=== PATIENT | female | born 1995 | race Caucasian/White ===

== ENCOUNTER 2019-08-22 17:02 | Emergency (ER) | payer BC, OTHER ==
[2019-08-22 17:50] VITALS: BP 117/63
--- NOTE | 2019-08-22 18:10 | UC ---
Complaint Female HPI - HPI Summary HPI Summary: Patient is a 24yo female presenting with mother requesting "blood test for ." Patient states that she is currently trying to become with her first child and had a positive home test 2 days ago. States LMP . Her mother notes that the women in their family have a history of "feeling and having positive home tests, but not actually being ." Her mother states that because of this, "only blood tests have ever been accurate." Patient states since the end of July she has had nausea and vomiting "almost every other day" and that "she just feels different. Patient notes urinating frequency the past few days. She notes a h/o UTIs but states she does not have the burning that she usually has with them. - History Of Current Complaint Chief Complaint: UCGU Stated Complaint: PERSONAL Hx Obtained From: Patient, Family/Historical Guide - mother Hx Last Menstrual Period: 07/02/19 Pain Intensity: 0 - Allergies/Home Medications Allergies/Adverse Reactions: Allergies Allergy/AdvReac Type Severity Reaction Status Date / Time azithromycin Allergy Difficulty Verified 08/22/19 17:46 Breathing oxycodone Allergy Lightheaded, Verified 08/22/19 17:47 Nausea, Swelling PMH/Surg Hx/FS Hx/Imm Hx Previously Healthy: Yes - Surgical History Surgical History: Yes Surgery Procedure, Year, and Place: T&A, ~2009, [place] - Family History Known Family History: Positive: Non-Contributory - Social History Alcohol Use: None Substance Use Type: None Smoking Status (MU): Never Smoked Tobacco Household Exposure Type: Cigarettes Review of Systems All Other Systems Reviewed And Are Negative: Yes Constitutional: Positive: Negative Respiratory: Positive: Negative Cardiovascular: Positive: Negative Gastrointestinal: Positive: Vomiting - intermittent for ~1 month, Nausea - intermittent for ~1 month. Negative: Abdominal Pain, Diarrhea Genitourinary: Positive: Frequency. Negative: Dysuria, Hematuria, Urgency, Vaginal/Penile Burning Musculoskeletal: Positive: Negative Neurological: Positive: Negative Physical Exam Triage Information Reviewed: Yes Appearance: Well-Appearing, No Pain Distress, Well-Nourished, Obese Vital Signs: Initial Vital Signs Temp 98.6 F 08/22/19 17:44 Pulse 78 08/22/19 17:44 Resp 18 08/22/19 17:44 BP 117/63 08/22/19 17:44 Pulse Ox 100 08/22/19 17:44 Lab Results 08/22/19 08/22/19 Range/Units 17:55 17:57 POC Urine Color Yellow POC Urine Clarity Slightly cloudy POC Urine pH 5.5 (5-9) POC Ur Specif [place] >= 1.030 (1.010-1.030) POC Urine Protein 1+ A (Negative) POC Ur Glucose (UA) Negative (Negative) POC Urine Ketones Negative (Negative) POC Urine Blood Trace-intact (Negative) POC Urine Nitrite Negative (Negative) POC Urine Bilirubin 1+ A (Negative) POC Urine Urobilinogen 0.2 (Negative) POC U Leukocyte Esteras 2+ A (Negative) POC Ur Test Positive A (Negative) Vital Signs Reviewed: Yes Eyes: Positive: Conjunctiva Clear ENT: Positive: Hearing grossly normal Neck: Positive: Supple Respiratory Exam: Normal Respiratory: Positive: Lungs clear, Normal breath sounds, No respiratory distress Cardiovascular Exam: Normal Cardiovascular: Positive: RRR Abdominal Exam: Normal Abdomen Description: Positive: Nontender, Soft Bowel Sounds: Positive: Present Neurological: Positive: Alert Psychological: Positive: Age Appropriate Behavior Skin Exam: Normal Complaint Female Dx - Course Course Of Treatment: Patient presents with request for serum hCG test. Urine positive and UA positive for WBCs and blood. I treated patient with macrobid for possible UTI in along with c/o urinary frequency. Patient received serum hCG testing and instructed to follow up with [facility] or pcp as soon as possible. Patient voiced understanding and agreed with plan. - Differential Dx/Diagnosis Provider Diagnosis: Positive urine test, UTI in Discharge ED - Sign-Out/Discharge Documenting (check all that apply): Patient Departure All imaging exams completed and their final reports reviewed: No Studies - Discharge Plan Condition: Stable Disposition: HOME Prescriptions: Nitrofurantoin Monohyd/M-Cryst [Macrobid 100 mg Capsule] 100 mg PO BID #10 cap Patient Education Materials: Urinary Tract Infection in (ED) Referrals: [facility] [Outside] [facility] [Outside] Additional Instructions: Your urine was positive for today. It also showed possible infection, which requires treatment in early . Your urine has been sent for culture and you will be notified with any results warranting change in treatment. Your blood test for has also been sent and results will be obtained within the next day or two. Follow up with your primary care provider within the next week. Go to the emergency room with any new or worsening symptoms. - Billing Disposition and Condition Condition: STABLE Disposition: Home
--- NOTE | 2019-08-25 07:08 | UC ---
- Progress Note Progress Note: please notify patient NO UTI STOP antibiotic recheck if still symptomatic Course/Dx - Diagnoses Provider Diagnoses: Positive urine test, UTI in Discharge ED - Sign-Out/Discharge Documenting (check all that apply): Post-Discharge Follow Up All imaging exams completed and their final reports reviewed: No Studies - Discharge Plan Condition: Stable Disposition: HOME Prescriptions: Nitrofurantoin Monohyd/M-Cryst [Macrobid 100 mg Capsule] 100 mg PO BID #10 cap Patient Education Materials: Urinary Tract Infection in (ED) Referrals: [facility] [Outside] [facility] [Outside] Additional Instructions: Your urine was positive for today. It also showed possible infection, which requires treatment in early . Your urine has been sent for culture and you will be notified with any results warranting change in treatment. Your blood test for has also been sent and results will be obtained within the next day or two. Follow up with your primary care provider within the next week. Go to the emergency room with any new or worsening symptoms. - Billing Disposition and Condition Condition: STABLE Disposition: Home
== END 2019-08-22 18:57 | disposition home or self-care (01) ==
LOC: UCCORT 17:02
DX: O23.41 Unspecified infection of urinary tract in pregnancy, first trimester (principal); Z88.1 Allergy status to other antibiotic agents; Z88.5 Allergy status to narcotic agent
CPT/HCPCS: 36415; 81003; 84702; 87086; 99201; G0463

== ENCOUNTER 2019-08-30 07:01 | Day surgery (SDC) | payer BC ==
--- NOTE | 2019-08-30 07:06 | ED ---
GI/ HPI - HPI Summary HPI Summary: Patient is a 24 y/o F presenting to [facility] via EMS from [facility] for N/V /D and concern for esophageal food impaction since last night 08/29/19 at 1930. Pt reports she tried to eat stew, meat, and mashed potatoes but became sick stating that she has inability to drink, N/V/D (still vomiting), FB sensation, and constriction in her chest. Patient had gotten Benadryl, Reglan, Ceftriaxone in at [place] due to UTI and food impaction. Pt reports she was then sent to [facility] for GI consult due to continuing pain and inability to tolerate liquids. As of note pt is 7 wks 5 days . Symptoms aggravated by swallowing. Symptoms alleviated by nothing. - History of Current Complaint Stated Complaint: GI SERVICES PER EMS Hx Obtained From: Patient Hx Last Menstrual Period: 07/02/19 Onset/Duration: Started Hours Ago, Still Present Timing: Constant Associated Signs and Symptoms: Positive: Nausea, Vomiting, Diarrhea, Other: - FB sensation, esophageal food impaction, "constriction" in chestm, inability to tolerate liquids Foreign Body: Esophageal Aggravating Factor(s): Swallowing Alleviating Factor(s): Nothing - Allergy/Home Medications Allergies/Adverse Reactions: Allergies Allergy/AdvReac Type Severity Reaction Status Date / Time azithromycin Allergy Difficulty Verified 08/30/19 07:08 Breathing oxycodone Allergy Lightheaded, Verified 08/30/19 07:08 Nausea, Swelling Home Medications: Home Medications Multivitamin [Children's Chewable Vitamin] 1 tab PO DAILY 08/30/19 [History Confirmed 08/30/19] PMH/Surg Hx/FS Hx/Imm Hx Sensory History: Denies: Hx Legally Blind Opthamlomology History: Denies: Hx Legally Blind EENT History: Denies: Hx Deafness - Surgical History Surgery Procedure, Year, and Place: T&A, ~2009, [place] - Family History Known Family History: Positive: Non-Contributory - Social History Alcohol Use: None Hx Substance Use: No Substance Use Type: Reports: None Hx Tobacco Use: No Smoking Status (MU): Never Smoked Tobacco Review of Systems Positive: Other - FB sensation, esophageal food impaction, inability to drink Positive: Other - "constriction" in chest Positive: Vomiting, Diarrhea, Nausea All Other Systems Reviewed And Are Negative: Yes Physical Exam - Summary Physical Exam Summary: Constitutional: Well-developed, Well-nourished, Alert. (-) Distressed Skin: Warm, Dry HENT: Normocephalic; Atraumatic Eyes: Conjunctiva normal Neck: Musculoskeletal ROM normal neck. (-) JVD, (-) Stridor, (-) Nuchal rigidity Cardio: Rhythm regular, rate normal, Heart sounds normal; Intact distal pulses; Radial pulses are 2+ and symmetric. (-) Murmur Pulmonary/Chest wall: Effort normal. (-) Respiratory distress, (-) Wheezes, (-) Rales Abd: Soft, (-) tenderness, (-) Distension, (-) Guarding, (-) Rebound Musculoskeletal: (-) Edema Lymph: (-) Cervical adenopathy Neuro: Alert, Oriented x3 Psych: Mood and affect Normal Triage Information Reviewed: Yes Vital Signs Reviewed: Yes Procedures - Sedation Patient Received Moderate/Deep Sedation with Procedure: No Re-Evaluation - Re-Evaluation First Eval Re-Evaluation Time: 07:10 Comment: discusses plan of care GIGU Course/Dx - Course Course Of Treatment: 24 y/o F at G1 at 7w5d p/w concern for food impaction. - VSS NAD. Mild secretions. Protecting airway. GI at bedside, plan for scope under general anesthesia. - Diagnoses Provider Diagnoses: Dysphasia - Physician Notifications Discussed Care Of Patient With: Roger Bustillo - GI Time Discussed With Above Provider: 07:05 Instructed by Provider To: Admit As Inpatient Discharge ED - Sign-Out/Discharge Documenting (check all that apply): Patient Departure - admit - Discharge Plan Condition: Stable Disposition: ADMITTED TO [facility] Referrals: No Primary Care Phys,NOPCP [Primary Care Provider] - - Billing Disposition and Condition Condition: STABLE Disposition: Admitted to [facility] - Attestation Statements Document Initiated by Scribe: Yes Documenting Scribe: Jonelle Martin Provider For Whom Marisol is Documenting (Include Credential): Dr. Guillermo Bo MD Scribe Attestation: Jonelle Banks scribed for Dr. Guillermo Bo MD on 08/30/19 at 0747. Scribe Documentation Reviewed: Yes Provider Attestation: The documentation as recorded by the Nona bonnerson Veronica accurately reflects the service I personally performed and the decisions made by me, Dr. Guillermo Bo MD Status of Scribe Document: Viewed
[2019-08-30] MEDS ORDERED: Lidocaine 2% PF * 5 ML VIAL ONE (07:37)
[2019-08-30] MEDS ORDERED: fentaNYL* 50 MCG/ML 2 ML VIAL (100 MCG VIAL) ONE (07:37)
[2019-08-30] MEDS ORDERED: Propofol* 10 MG/ML 20 ML BTL ONE (07:37)
[2019-08-30] MEDS ORDERED: fentaNYL* 50 MCG/ML 2 ML VIAL (100 MCG VIAL) IV PRN (08:18)
[2019-08-30] MEDS ORDERED: Naloxone* 0.4 MG/ML 1 ML VIAL IV PRN (08:18)
[2019-08-30] MEDS ORDERED: Acetaminophen IV 1GM/100ML * 1,000 MG/100 ML VIAL IVPB ONE (08:18)
[2019-08-30 09:11] VITALS: BP 118/63
--- NOTE | 2019-08-30 10:18 | CONS ---
CONSULTATION REPORT: DATE OF CONSULT: 08/30/19 REQUESTING PHYSICIAN: Dr. Bo. REASON FOR CONSULTATION: Esophageal foreign body in . HISTORY OF PRESENT ILLNESS: This is a 24-year-old female who was in her usual state of health, who is approximately 2 months , who states that she was eating stewed beef at 7:30 of last night then had difficulty swallowing. She tried to wash it down with water and repeatedly had clear emesis and difficulty with her secretions. She presented to the [facility] for further evaluation. There, she was given glucagon unsuccessfully. I was called and notified by our transfer center at 4:50 a.m. on 08/30/19. I immediately arrived to the hospital, unfortunately due to delay in ambulance, she did not arrive here until 7:05, where I immediately saw her. She states that she does not have any abdominal pain. She is still having difficulty with secretions. She has never had anything happened like this before. She does not frequently have any dysphagia or odynophagia. She does admit to frequent allergy conditions include seasonal allergies and occasional asthma, which she uses p.r.n. albuterol inhaler. She takes a multivitamin, but denies any other medication usage. Denies aspirin, ibuprofen, Motrin on a frequent basis. She denies any diarrhea, constipation. Denies any melena or hematochezia. Denies any recent sick contacts. Remainder of the 14-point review of systems is grossly negative except for as described in the HPI. PAST MEDICAL HISTORY: 2 months. PAST SURGICAL HISTORY: None. FAMILY HISTORY: Denies family history of GI cancer or inflammatory bowel disease. SOCIAL HISTORY: No tobacco, no alcohol use, no marijuana use. HOME MEDICATIONS: Daily multivitamin. ALLERGIES: Include AZITHROMYCIN, which elicits difficulty breathing and OXYCODONE, which gives lightheadedness, nausea, and swelling. REVIEW OF SYSTEMS: Remainder of the 14-point review of systems is negative, except for as described in the HPI. PHYSICAL EXAMINATION: Vital Signs: Blood pressure is 127/72, pulse 87, respiratory rate is 16, temperature is 98.7, she is 98% on room air. General: Alert and oriented x3, in no acute distress. HEENT: Atraumatic, normocephalic. Pupils equal, round, and reactive to light. Extraocular movements are intact. Conjunctivae are pink. Sclerae anicteric. Cardiovascular : Regular rate and rhythm. S1, S2. Respiratory: Clear to auscultation bilaterally. Abdomen: Soft, nontender, nondistended. Bowel sounds positive. Extremities: No clubbing, no cyanosis, no edema. Psych: Appropriate mood and affect. ASSESSMENT AND PLAN: This is a 24-year-old female with esophageal foreign body of stewed beef that was ingested around 7:30 p.m. last evening with difficulty of secretions. Esophageal foreign body. Given the difficulty of secretions and the 2 months of , I will plan on urgent EGD with the anesthesia assistance for the safest anesthesia plan. Depending on the results, we will plan on either PPI or famotidine depending on the severity of her reflux esophagitis or EoE potentially. Discussed that she may need a repeat upper endoscopy at the conclusion of with more definitive sampling. I discussed the risks, benefits, and alternatives of the procedure and she agrees to proceed. [id number]/[facility] #: [id number] TAMMY
--- NOTE | 2019-08-30 12:56 | PRO ---
EGD REPORT: DATE OF PROCEDURE: 08/30/19 INDICATION FOR PROCEDURE: Esophageal foreign body. PROCEDURE PERFORMED: Complete esophagogastroduodenoscopy with foreign body removal and biopsies. MEDICATIONS GIVEN: Please see Anesthesia record. DESCRIPTION OF PROCEDURE: After the EGD procedure including the risks, benefits , and alternatives with the risks not limited to perforation, surgery, missed lesions, and/or were explained to the patient, written informed consent was obtained, IV medication was given by the anesthesia service and a bite- block was placed between the teeth. The adult Olympus gastroscope was then inserted into the patient's oropharynx into the tubular esophagus. At 38 cm, a piece of steak and beef was noted. This was gently pushed through the lower esophageal sphincter into the stomach with ease. The area was inspected afterwards. No significant bleeding, but there was LA-C erosive esophagitis. I did take a biopsy in the mid esophagus to rule out eosinophilic esophagitis. The scope was advanced through the lower esophageal sphincter. There was no stricturing or narrowing into the stomach. Direct views showed mild antral predominant gastritis and biopsy was taken for CLOtesting. On retroflexion, no large hiatal hernia was appreciated. The scope was advanced through the widely patent pylorus into the duodenal bulb, C- loop, distal duodenum and these were normal in appearance. The scope was then removed from the patient. She tolerated the procedure well. She returned to the recovery room in stable condition. IMPRESSION: 1. Complete esophagogastroduodenoscopy with biopsies and successful foreign body removal. 2. Successful foreign body removal. 3. Gastritis, biopsied. 4. LA-C erosive esophagitis. Mid biopsy taken to rule out eosinophilic esophagitis. RECOMMENDATIONS: The patient is 7 weeks . She does have severe erosive esophagitis. I discussed the risks, benefits, and alternatives to long- term PPI therapy while , with her mother Tamar and we are in agreement to proceed given it is a class C medication and she has a firm indication for it. We will plan on a repeat EGD after to assess for Pascual esophagus underneath the erosive nature of this. I will follow up on the results of the biopsies. I discussed with the mom and the patient to chew the food extensively in the meantime and to notify me with any issues. [id number]/[facility] #: [id number] [facility]
== END 2019-08-30 09:50 | disposition short-term general hospital (02) ==
LOC: ED 07:01 → OR 07:30
PROVIDERS: ATTEND Internal Medicine Gastroenterology
DX: R13.10 Dysphagia, unspecified (principal); Z88.1 Allergy status to other antibiotic agents; Z88.5 Allergy status to narcotic agent
CPT/HCPCS: 87077; 88305; 99282; J2704; J3010

== ENCOUNTER 2023-10-29 10:14 | Inpatient (IN) ==
[2023-10-29] MEDS ORDERED: Lidocaine 1% VIAL 10 MG/ML 30 ML VIAL INJ PRN (10:36)
[2023-10-29 12:12] LABS: Hematocrit 33.1 % (35-45); Hemoglobin 10.6 g/dL (11.5-14.3); Mean Corpuscular Hemoglobin 22.7 pg (27-33); Mean Corpuscular Hgb Conc 31.9 g/dL (31-36); Mean Corpuscular Volume 71.1 fL (80-97); Mean Platelet Volume 7.3 fL (7.5-11.2); Platelet Count 337 10^3/uL (150-450); Red Blood Count 4.65 10^6/uL (3.63-4.92); Red Cell Distribution Width 17.5 % (12-17); White Blood Count 12.5 10^3/uL (3.8-11.8)
[2023-10-29 12:32] LABS: Urine Creatinine Concentration 213.74 mg/dL (20.00-320.00); Urine TP Creat Ratio 0.16 mg/mg
[2023-10-29 12:36] LABS: Urine Benzodiazepine Screen None Detected (None Detect); Urine Cannabinoids Screen None Detected (None Detect); Urine Opiates Screen None Detected (None Detect)
[2023-10-29 12:43] LABS: ABS Basophils 0.1 10^3/uL (0.0-0.1); ABS Eosinophils 0.1 10^3/uL (0.0-0.5); ABS Lymphocytes 2.5 10^3/uL (1.0-4.8); ABS Monocytes 0.6 10^3/uL (0.0-0.9); ABS Neutrophils 9.2 10^3/uL (1.5-7.6); ABS Nucleated RBC 0.02 10^3/ul; Anisocytosis 2+; Eosinophil % 1.1 %; Hypochromasia 1+; Lymphocyte % 19.7 %; Microcytosis 2+; Nucleated Red Blood Cells % 0.1 %/100WBC (0.0-0.8)
[2023-10-29] MEDS: Oxytocin in LR 20,000 MILLI.UNIT/1,000 ML BAG IV SCH ×2 (12:49→19:50)
[2023-10-29] MEDS: Lactated Ringers 1000 ml BAG 1,000 ML IV SCH ×2 (12:53→19:28)
[2023-10-29] MEDS ORDERED: Sodium Citrate/Citric Acid LIQ 15 ML UDC PO PRN (14:28)
[2023-10-29] MEDS ORDERED: Phenylephrine 40 mcg/mL 10mL (400mcg) SYRINGE IV PUSH PRN ×2 (14:28)
[2023-10-29] MEDS: OBEPIDURAL (200 ML) 200 ML EPIDURAL ONE (14:35)
[2023-10-29] MEDS: OBEPIDURAL (200 ML) 200 ML EPIDURAL SCH (14:35)
[2023-10-29] MEDS: Lidocaine 1.5% EPI 1:200,000 30 ML SDV ONE (14:35)
[2023-10-29] MEDS: Lactated Ringers 1000 ml BAG 1,000 ML IV ONE ×2 (14:36)
[2023-10-29 16:11] LABS: Urine Appearance Clear; Urine Bilirubin Negative (Negative); Urine Blood Negative (Negative); Urine Color Light-Yellow; Urine Glucose Negative (Negative); Urine Ketones Trace (Negative); Urine Nitrite Negative (Negative); Urine Protein Negative (Negative); Urine Specific Gravity 1.011 (1.002-1.030); Urine Urobilinogen Negative (Negative); Urine pH 6.5 (5.0-8.0)
[2023-10-29] MEDS ORDERED: RHO D Immune Globulin (HUMAN) 300 MCG = 1,500 I.U. INJ IM PRN (16:23)
[2023-10-29] MEDS ORDERED: Lactated Ringers 1000 ml BAG 1,000 ML IV SCH (17:00)
[2023-10-29] MEDS: Dibucaine 1% OINT 28.35 GM TUBE PR PRN (17:18)
[2023-10-29] MEDS: Witch Hazel PAD JAR TOPICAL PRN (17:19)
[2023-10-30 06:59] LABS: ABS Basophils 0.1 10^3/uL (0.0-0.1); ABS Eosinophils 0.2 10^3/uL (0.0-0.5); ABS Lymphocytes 3.1 10^3/uL (1.0-4.8); ABS Monocytes 0.7 10^3/uL (0.0-0.9); ABS Neutrophils 6.7 10^3/uL (1.5-7.6); Eosinophil % 1.5 %; Hematocrit 28.5 % (35-45); Hemoglobin 9.3 g/dL (11.5-14.3); Lymphocyte % 28.7 %; Mean Corpuscular Hemoglobin 23.2 pg (27-33); Mean Corpuscular Hgb Conc 32.4 g/dL (31-36); Mean Corpuscular Volume 71.7 fL (80-97); Platelet Count 265 10^3/uL (150-450); Red Blood Count 3.98 10^6/uL (3.63-4.92); Red Cell Distribution Width 17.3 % (12-17); White Blood Count 10.6 10^3/uL (3.8-11.8)
[2023-10-30 12:49] VITALS: BP 108/54
== END 2023-10-30 17:51 | disposition home or self-care (01) | DRG 560 ==
LOC: MCHOBOUT 10:14 → MCHOB 10:59
PROVIDERS: ADMIT Midwife; ATTEND Midwife